=== PATIENT | male | born 1995 | race American Indian/Alaskan Native ===

== ENCOUNTER 2020-02-04 04:29 | Emergency (ER) | payer SELFPAY ==
[2020-02-04 04:40] VITALS: BP 140/52
--- NOTE | 2020-02-04 05:23 | XRay Report ---
EXAMINATION: Left tibia/fibula, 2 views CLINICAL INFORMATION: Left leg pain after fall several days ago COMPARISON: None. FINDINGS: There is no evidence of acute fracture of the tibia or fibula. No focal soft tissue swellin g is identified. Signer Name: Alisia Isidro MD Signed: 02/04/2020 5:19 AM Workstation Name: [id number]
--- NOTE | 2020-02-04 07:50 | Emergency Department Report ---
ED Lower Extremity HPI - General Chief Complaint: Extremity Injury, Lower Stated Complaint: LT LEG PAIN Time Seen by Provider: 02/04/20 07:46 Source: patient Mode of arrival: Ambulatory Limitations: No Limitations - History of Present Illness Initial Comments: 24-year-old -Maur[place] male presents to the emergency room for left lower extremity pain and swelling x1 day. Patient states he jumped off a staircase and hurt his leg. Patient states he is tried Advil Tylenol Epson salt soaks ice and heat. Patient says nothing makes it better and worse is walking. Patient reports a past medical history of asthma currently takes no medications on a daily basis has no known drug allergies. MD Complaint: knee injury Onset/Timin -: days(s) Injury: Knee: Left Type of Injury: blunt Place: home Severity scale (0 -10): 10 Improves With: nothing Worsens With: movement Context: direct blow Associated Symptoms: swelling Treatments Prior to Arrival: cold therapy, NSAIDS, other (Heat) - Related Data Allergies Allergy/AdvReac Type Severity Reaction Status Date / Time No Known Allergies Allergy Unverified 02/04/20 04:38 ED Review of Systems ROS: Stated complaint: LT LEG PAIN Other details as noted in HPI Comment: All other systems reviewed and negative ED Past Medical Hx - Past Medical History Previous Medical History?: Yes Hx Asthma: Yes - Surgical History Past Surgical History?: No - Social History Smoking Status: Never Smoker Substance Use Type: Marijuana ED Physical Exam - General Limitations: No Limitations General appearance: alert, in no apparent distress - Head Head exam: Present: atraumatic, normocephalic - Eye Eye exam: Present: normal appearance - ENT ENT exam: Present: mucous membranes moist - Expanded Lower Extremity Exam Left Knee exam: Present: normal inspection, full ROM, swelling (Mild). Absent: tenderness, erythema, effusion Lower Leg exam: Present: normal inspection, full ROM. Absent: tenderness, swelling Foot/Toe exam: Present: normal inspection Neuro vascular tendon exam: Present: no vascular compromise - Back Exam Back exam: Present: normal inspection - Neurological Exam Neurological exam: Present: alert, oriented X3 - Psychiatric Psychiatric exam: Present: normal affect, normal mood - Skin Skin exam: Present: warm, dry, intact, normal color. Absent: rash ED Course Vital Signs 02/04/20 04:33 Temperature 98.2 F Pulse Rate 67 Respiratory 18 Rate Blood Pressure 140/52 O2 Sat by Pulse 97 Oximetry ED Lower Extremity MDM - Radiology Data Radiology results: report reviewed Patient: LIONEL SEBASTIAN MR#: [id number] : 1995 Acct:[id number] Age/Sex: 24 / M ADM Date: 02/04/20 Loc: ED Attending Dr: Ordering Physician: MAAME CRARENO MD Date of Service: 02/04/20 Procedure(s): XR tibia fibula 2V LT Accession Number(s): [id number] cc: ED MD WAI Fluoro Time In Minutes: EXAMINATION: Left tibia/fibula, 2 views CLINICAL INFORMATION: Left leg pain after fall several days ago COMPARISON: None. FINDINGS: There is no evidence of acute fracture of the tibia or fibula. No focal soft tissue swelling is identified. Signer Name: Alisia Isidro MD Signed: 02/04/2020 5:19 AM Workstation Name: [id number] Transcribed By: EB Dictated By: Alisia Isidro MD Electronically Authenticated By: Alisia Isidro MD Signed Date/Time: 02/04/20518 DD/ 7 TD/TT: - Medical Decision Making 24-year-old -Maur[place] male presents to the emergency room for left lower extremity pain and swelling x1 day. Patient states he jumped off a staircase and hurt his leg. Patient states he is tried Advil Tylenol Epson salt soaks ice and heat. Patient says nothing makes it better and worse is walking. Patient reports a past medical history of asthma currently takes no medications on a daily basis has no known drug allergies. X-ray is negative for any acute findings or infusion. Recommend Tylenol or ibuprofen elevate ice and follow-up with orthopedic provider as I discussed with patient he may need to have an MRI. Patient verbalized understanding. Critical care attestation.: If time is entered above; I have spent that time in minutes in the direct care of this critically ill patient, excluding procedure time. ED Disposition Clinical Impression: Lower leg injury Disposition: DC-01 TO HOME OR SELFCARE Is pt being admited?: No Does the pt Need Aspirin: No Condition: Stable Instructions: Knee Pain (ED) Additional Instructions: X-ray is negative for any acute fractures. I recommend Tylenol or ibuprofen for pain management. Follow-up with a primary care provider or an orthopedic provider if you have any further concerns. Referrals: PRIMARY CAREMD [Primary Care Provider] - 3-5 Days [facility] [Provider Group] - 3-5 Days PARISA RANDALL MD [Staff Physician] - 3-5 Days Forms: Work/School Release Form(ED)
== END 2020-02-04 08:16 | disposition home or self-care (01) ==
LOC: ED 04:29
DX: S89.92XA Unspecified injury of left lower leg, initial encounter (principal); J45.909 Unspecified asthma, uncomplicated; F12.90 Cannabis use, unspecified, uncomplicated; W17.89XA Other fall from one level to another, initial encounter; Y93.89 Activity, other specified; Y92.009 Unspecified place in unspecified non-institutional (private) residence as the place of occurrence of the external cause; Y99.8 Other external cause status

== ENCOUNTER 2021-08-18 11:16 | Emergency (ER) | payer SELFPAY ==
[2021-08-18] MEDS ORDERED: LACTATED RINGERS 1,000 ML IV ONE (11:42)
[2021-08-18] MEDS ORDERED: ALBUTEROL 2.5 MG/3 ML NEBU IH ONE (11:42)
[2021-08-18] MEDS ORDERED: MIDAZOLAM 2 MG/2 ML INJ IV ONE (11:42)
[2021-08-18] MEDS ORDERED: METOCLOPRAMIDE 10 MG/2 ML INJ IV ONE (11:42)
--- NOTE | 2021-08-18 11:44 | Emergency Department Report ---
ED General Adult HPI - General Chief complaint: Chest Pain Stated complaint: CP Time Seen by Provider: 08/18/21 11:41 Source: patient, RN notes reviewed Mode of arrival: Ambulatory Limitations: No Limitations - History of Present Illness Initial comments: Patient is a 25-year-old gentleman, who presents to the ER with a complaint of sudden anterior chest pain. The pain started this morning. It does not radiate to the back, arms or neck. The patient denies vomiting and diaphoresis. The patient is very anxious. The patient consumed recreational hookah yesterday. However, his symptoms started this morning. He believes he has a history of asthma or reactive airway disease. Denies contributory family history. Symptoms in the emergency room are much improved with administration of Versed and albuterol -: Sudden Location: chest Severity scale (0 -10): 8 Consistency: constant Improves with: none Worsens with: none - Related Data Previous Rx's Medication Instructions Recorded Last Taken Type Acetaminophen [Non-Aspirin Extra 500 mg PO Q6HR PRN #30 tablet 08/18/21 Unknown Rx Strength] Albuterol Sulfate [Proair 90 mcg IH Q4HR PRN #2 aer.pow.ba 08/18/21 Unknown Rx Respiclick] Famotidine [Pepcid] 20 mg PO BID #10 tablet 08/18/21 Unknown Rx Ondansetron [Zofran Odt] 4 mg PO Q8HR PRN #20 tab.rapdis 08/18/21 Unknown Rx Allergies Allergy/AdvReac Type Severity Reaction Status Date / Time No Known Allergies Allergy Unverified 02/04/20 04:38 ED Review of Systems ROS: Stated complaint: CP Other details as noted in HPI Constitutional: denies: fever ENT: congestion Respiratory: shortness of breath Cardiovascular: chest pain Gastrointestinal: denies: abdominal pain Psychiatric: anxiety ED Past Medical Hx - Past Medical History Hx Asthma: Yes - Social History Smoking Status: Never Smoker Substance Use Type: Marijuana - Medications Home Medications: Home Medications Medication Instructions Recorded Confirmed Last Taken Type Acetaminophen [Non-Aspirin Extra 500 mg PO Q6HR PRN #30 tablet 08/18/21 Unknown Rx Strength] Albuterol Sulfate [Proair 90 mcg IH Q4HR PRN #2 aer.pow.ba 08/18/21 Unknown Rx Respiclick] Famotidine [Pepcid] 20 mg PO BID #10 tablet 08/18/21 Unknown Rx Ondansetron [Zofran Odt] 4 mg PO Q8HR PRN #20 tab.rapdis 08/18/21 Unknown Rx ED Physical Exam - General Limitations: No Limitations General appearance: alert, anxious, in distress - Head Head exam: Present: atraumatic, normocephalic - Eye Eye exam: Present: normal appearance, EOMI. Absent: nystagmus - ENT ENT exam: Present: normal exam, normal orophraynx, mucous membranes moist, normal external ear exam - Neck Neck exam: Present: normal inspection, full ROM. Absent: tenderness - Respiratory Respiratory exam: Present: respiratory distress, rhonchi, accessory muscle use - Cardiovascular Cardiovascular Exam: Present: regular rate, normal rhythm, normal heart sounds. Absent: bradycardia, tachycardia, irregular rhythm, systolic murmur, diastolic murmur, rubs, gallop - GI/Abdominal GI/Abdominal exam: Present: soft. Absent: distended, tenderness, guarding, rebound, rigid, pulsatile mass - Rectal Rectal exam: Present: deferred - Extremities Exam Extremities exam: Present: normal inspection, full ROM, other (2+ pulses noted in the bilateral upper and lower extremities. There is no palpable cord. negative Homans sign. Muscular compartments are soft. The pelvis is stable.). Absent: pedal edema, calf tenderness - Back Exam Back exam: Present: normal inspection, full ROM. Absent: tenderness, CVA tenderness (R), CVA tenderness (L), paraspinal tenderness, vertebral tenderness - Neurological Exam Neurological exam: Present: alert, oriented X3, other (No facial droop. Tongue midline. Extraocular movements intact bilaterally. Facial sensation intact to light touch in V1, V2, V3 distribution bilaterally. 5 and a 5 strength in 4 extremities. Sensation intact to light touch in 4 extremities.). Absent: motor sensory deficit - Psychiatric Psychiatric exam: Present: anxious - Skin Skin exam: Present: warm, dry, intact, normal color. Absent: rash ED Course Vital Signs 08/18/21 08/18/21 08/18/21 11:34 11:35 11:45 Temperature 98.1 F Pulse Rate 77 81 64 Pulse Rate [ Anterior Bilateral] Respiratory 21 18 12 Rate Respiratory Rate [Anterior Bilateral] Blood Pressure 125/80 Blood Pressure 124/80 [Right] O2 Sat by Pulse 99 100 Oximetry O2 Sat by Pulse Oximetry [ Digit-Finger] 08/18/21 08/18/21 08/18/21 11:56 12:01 12:15 Temperature Pulse Rate 82 100 H Pulse Rate [ 79 Anterior Bilateral] Respiratory 20 17 19 Rate Respiratory 18 Rate [Anterior Bilateral] Blood Pressure 123/79 115/68 Blood Pressure [Right] O2 Sat by Pulse 100 95 97 Oximetry O2 Sat by Pulse Oximetry [ Digit-Finger] 08/18/21 08/18/21 08/18/21 12:31 12:45 13:01 Temperature Pulse Rate 83 76 77 Pulse Rate [ Anterior Bilateral] Respiratory 16 15 15 Rate Respiratory Rate [Anterior Bilateral] Blood Pressure 112/73 128/69 130/67 Blood Pressure [Right] O2 Sat by Pulse 97 100 99 Oximetry O2 Sat by Pulse Oximetry [ Digit-Finger] 08/18/21 08/18/21 08/18/21 13:15 13:24 14:27 Temperature Pulse Rate 81 81 Pulse Rate [ Anterior Bilateral] Respiratory 14 14 Rate Respiratory Rate [Anterior Bilateral] Blood Pressure 121/61 Blood Pressure 121/61 [Right] O2 Sat by Pulse 100 100 Oximetry O2 Sat by Pulse 99 Oximetry [ Digit-Finger] - Reevaluation(s) Reevaluation #1: 08/18/21 12:30 Differential diagnosis, include but not limited to: Pneumonitis, costochondritis, GERD, gastritis, hiatal hernia, acute coronary syndrome, pulmonary embolism, acute aortic syndrome, esophageal rupture Assessment and plan: 25-year-old gentleman who consumed hookah last night, but presents with central sudden chest pain hours after consumption. He is anxious and in marked distress. He is improved with albuterol and midazolam. Presuming negative troponin x2, patient at low risk for major adverse cardiac event as per heart score. Given patient's initial presentation upon arrival, including distress do not feel that patient can be risk stratified for pulmonary embolism by D-dimer alone, and will require advanced imaging to evaluate for alternative pathology, such as esophageal rupture, aortic insufficiency, or nonvisualized pneumothorax. Patient is agreeable to CT scan of the chest. We will reassess after his laboratory studies and CT scan have resulted. 08/18/21 14:27 Patient much improved. Laboratory studies essentially unremarkable, CO2 of 19 likely secondary to hyperventilation. Repeat EKG, troponin, and CT angiogram chest pending at this time 08/18/21 15:47 Patient is reevaluated multiple times. EKG is unchanged x2. Troponin is negative x2. CT angiogram chest negative for acute findings. Patient endorses complete resolution of symptoms and reports that he feels much better. He is counseled to follow-up as an outpatient. Return precautions reviewed. All questions answered - Pulse Oximetry Interpretation Digit-Finger Initial Pulse Oximetry Readin O2 Sat by Pulse Oximetry: 99 Actions Taken: none ED Medical Decision Making - Lab Data Result diagrams: 08/18/21 12:22 08/18/21 12:22 Vital Signs 08/18/21 08/18/21 08/18/21 11:34 11:35 11:56 Temperature 98.1 F Pulse Rate 77 81 Pulse Rate [ Anterior Bilateral] Respiratory 21 18 20 Rate Respiratory Rate [Anterior Bilateral] Blood Pressure 124/80 [Right] O2 Sat by Pulse 99 100 Oximetry 08/18/21 12:01 Temperature Pulse Rate Pulse Rate [ 79 Anterior Bilateral] Respiratory Rate Respiratory 18 Rate [Anterior Bilateral] Blood Pressure [Right] O2 Sat by Pulse Oximetry (1) Lab Results 08/18/21 08/18/21 08/18/21 Range/Units 12: 12:22 12:22 WBC 8.8 (4.5-11.0) K/mm3 RBC 4.90 (3.65-5.03) M/mm3 Hgb 14.2 (11.8-15.2) gm/dl Hct 41.4 (35.5-45.6) % MCV 84 (84-94) fl MCH 29 (28-32) pg MCHC 34 (32-34) % RDW 13.4 (13.2-15.2) % Plt Count 252 (140-440) K/mm3 Lymph % (Auto) 9.3 L (13.4-35.0) % [place] % (Auto) 1.9 (0.0-7.3) % Eos % (Auto) 1.7 (0.0-4.3) % Baso % (Auto) 1.5 (0.0-1.8) % Lymph # (Auto) 0.8 L (1.2-5.4) K/mm3 [place] # (Auto) 0.2 (0.0-0.8) K/mm3 Eos # (Auto) 0.2 (0.0-0.4) K/mm3 Baso # (Auto) 0.1 (0.0-0.1) K/mm3 Seg Neutrophils % 85.6 H (40.0-70.0) % Seg Neutrophils # 7.6 (1.8-7.7) K/mm3 PT 13.0 (12.2-14.9) Sec. INR 0.89 (0.87-1.13) APTT 32.0 (24.2-36.6) Sec. D-Dimer 233.57 (0-234) ng/mlDDU Sodium 140 (137-145) mmol/L Potassium 4.2 (3.6-5.0) mmol/L Chloride 104.7 (98-107) mmol/L Carbon Dioxide 19 L (22-30) mmol/L Anion Gap 21 mmol/L BUN 14 (9-20) mg/dL Creatinine 0.8 (0.8-1.3) mg/dL Estimated GFR > 60 ml/min BUN/Creatinine Ratio 18 % Glucose 105 H (75-100) mg/dL Calcium 9.3 (8.4-10.2) mg/dL Total Bilirubin 0.30 (0.1-1.2) mg/dL AST 17 (5-40) units/L ALT 22 (7-56) units/L Alkaline Phosphatase 60 (35-129) units/L Troponin T < 0.010 (0.00-0.029) ng/mL Total Protein 7.4 (6.3-8.2) g/dL Albumin 4.5 (3.9-5) g/dL Albumin/Globulin Ratio 1.6 % Salicylates (2.8-20.0) mg/dL Acetaminophen (10.0-30.0) ug/mL 08/18/21 08/18/21 Range/Units 12:22 12:22 WBC (4.5-11.0) K/mm3 RBC (3.65-5.03) M/mm3 Hgb (11.8-15.2) gm/dl Hct (35.5-45.6) % MCV (84-94) fl MCH (28-32) pg MCHC (32-34) % RDW (13.2-15.2) % Plt Count (140-440) K/mm3 Lymph % (Auto) (13.4-35.0) % [place] % (Auto) (0.0-7.3) % Eos % (Auto) (0.0-4.3) % Baso % (Auto) (0.0-1.8) % Lymph # (Auto) (1.2-5.4) K/mm3 [place] # (Auto) (0.0-0.8) K/mm3 Eos # (Auto) (0.0-0.4) K/mm3 Baso # (Auto) (0.0-0.1) K/mm3 Seg Neutrophils % (40.0-70.0) % Seg Neutrophils # (1.8-7.7) K/mm3 PT (12.2-14.9) Sec. INR (0.87-1.13) APTT (24.2-36.6) Sec. D-Dimer (0-234) ng/mlDDU Sodium (137-145) mmol/L Potassium (3.6-5.0) mmol/L Chloride (98-107) mmol/L Carbon Dioxide (22-30) mmol/L Anion Gap mmol/L BUN (9-20) mg/dL Creatinine (0.8-1.3) mg/dL Estimated GFR ml/min BUN/Creatinine Ratio % Glucose (75-100) mg/dL Calcium (8.4-10.2) mg/dL Total Bilirubin (0.1-1.2) mg/dL AST (5-40) units/L ALT (7-56) units/L Alkaline Phosphatase (35-129) units/L Troponin T (0.00-0.029) ng/mL Total Protein (6.3-8.2) g/dL Albumin (3.9-5) g/dL Albumin/Globulin Ratio % Salicylates < 0.3 L (2.8-20.0) mg/dL Acetaminophen 5.0 L (10.0-30.0) ug/mL - EKG Data -: EKG Interpreted by [place] EKG shows normal: sinus rhythm Rate: normal - EKG Data When compared to previous EKG there are: previous EKG unavailable 08/18/21 12:28 . The EKG is interpreted at 11: 20. Sinus rhythm, rate 81 bpm. Normal axis, QTC 4 3 9 ms, high left ventricular voltage, normal P wave axis, nonspecific T wave abnormalities. Abnormal EKG. Not a STEMI. - Radiology Data Radiology results: pending, report reviewed, image reviewed CHEST 1 VIEW INDICATION / CLINICAL INFORMATION: Chest Pain. COMPARISON: None available. FINDINGS: SUPPORT DEVICES: None. HEART / MEDIASTINUM: No significant abnormality. LUNGS / PLEURA: No significant pulmonary or pleural abnormality. No pneumothorax. ADDITIONAL FINDINGS: No significant additional findings. IMPRESSION: 1. No acute findings. Signer Name: John Hughes MD Signed: 08/18/2021 10:58 AM Workstation Name: [id number] CTA chest with contrast INDICATION : Acute chest pain and shortness of breath. TECHNIQUE: Axial imaging performed through the chest, with contrast bolus timing set to maximize opacification of the pulmonary arteries. 3-plane MIP reformatted images were obtained. All CT scans at this location are performed using CT dose reduction for ALARA by means of automated exposure control. 85 mL of intravenous contrast administered. COMPARISON: None FINDINGS: Bolus/PTE: Contrast bolus timing is adequate. No filling defect is present to suggest PTE. Mediastinum: Heart and great vessels appear normal. No pathologic mediastinal adenopathy. Lungs: Lungs are clear. Upper abdomen: Limited imaging of the upper abdomen shows nothing acute. No acute abnormality in the distal esophagus or proximal stomach. Bones: Degenerative changes in the spine with nothing acute. IMPRESSION: Negative for PTE. Clear lungs. No significant GI finding. Signer Name: Marvin Nevarez MD Signed: 08/18/2021 2:01 PM Workstation Name: [id number] Critical care attestation.: If time is entered above; I have spent that time in minutes in the direct care of this critically ill patient, excluding procedure time. ED Disposition Clinical Impression: Acute chest pain, Hookah pipe smoker Disposition: 01 HOME / SELF CARE / HOMELESS Is pt being admited?: No Does the pt Need Aspirin: No Condition: Good Instructions: Chest Pain (ED) Additional Instructions: Do not take metformin medication for the next 2 days, if patient takes this medication. Avoid consumption of alcohol, tobacco, and smoke products. Take the pain medications as needed and directed. 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 Patient may take the prescribed pain medications as needed and directed. Minimize/avoid consumption of Motrin, ibuprofen, Naprosyn, Aleve, heavy and spicy foods, as well as alcohol. Please return to the emergency room right away with new pain, worsened pain, migration of pain, projectile vomiting, change in mental status, confusion, inability tolerate liquid feeds, new, worsened or different symptoms not present on the initial emergency room evaluation Prescriptions: Acetaminophen [Non-Aspirin Extra Strength] 500 mg PO Q6HR PRN #30 tablet PRN Reason: Pain , Severe (7-10) Famotidine [Pepcid] 20 mg PO BID #10 tablet Albuterol Sulfate [Proair Respiclick] 90 mcg IH Q4HR PRN #2 aer.pow.ba PRN Reason: Wheezing Ondansetron [Zofran Odt] 4 mg PO Q8HR PRN #20 tab.rapdis PRN Reason: Nausea Referrals: [facility] [Provider Group] - 3-5 Days [facility] [place] [Provider Group] - 3-5 Days Forms: Work/School Release Form(ED) Heart Score - HEART Score History: Slightly suspicious EKG: Non-specific Age: < 45 Risk factors: 1-2 risk factors Troponin: < normal limit HEART Score: 2 - EKG Read Time Time EKG Completed: 11:23 EKG Read Time: 11:23 - Critical Actions Critical Actions: 0-3 pts:0.9-1.7%risk of adverse cardiac event.Candidate for discharge
--- NOTE | 2021-08-18 12:03 | XRay Report ---
CHEST 1 VIEW INDICATION / CLINICAL INFORMATION: Chest Pain. COMPARISON: None available. FINDINGS: SUPPORT DEVICES: None. HEART / MEDIASTINUM: No significant abnormality. LUNGS / PLEURA: No significant pulmonary or pleural abnormality. No pneumothorax. ADDITIONAL FINDINGS: No significant additional findings. IMPRESSION: 1. No acute findings. Signer Name: John Hughes MD Signed: 08/18/2021 11:58 AM Workstation Name: [email or web address]
[2021-08-18] MEDS ORDERED: PANTOPRAZOLE 40 MG INJ IV ONE (12:34)
[2021-08-18 13:24] VITALS: BP 121/61
[2021-08-18 13:25] LABS: Basophils # (Auto) 0.1 K/mm3 (0.0-0.1); Basophils % (Auto) 1.5 % (0.0-1.8); Eosinophils # (Auto) 0.2 K/mm3 (0.0-0.4); Eosinophils % (Auto) 1.7 % (0.0-4.3); Hematocrit 41.4 % (35.5-45.6); Hemoglobin 14.2 gm/dl (11.8-15.2); Lymphocytes # (Auto) 0.8 K/mm3 (1.2-5.4); Lymphocytes % (Auto) 9.3 % (13.4-35.0); Mean Corpuscular HGB Conc 34 % (32-34); Mean Corpuscular Volume 84 fl (84-94); Monocytes # (Auto) 0.2 K/mm3 (0.0-0.8); Monocytes % (Auto) 1.9 % (0.0-7.3); Platelet Count 252 K/mm3 (140-440); Red Cell Distribution Width 13.4 % (13.2-15.2)
[2021-08-18 13:34] LABS: INR 0.89 (0.87-1.13)
[2021-08-18 14:23] LABS: Alanine Aminotransferase 22 units/L (7-56); Albumin 4.5 g/dL (3.9-5); BUN/Creatinine Ratio 18; Blood Urea Nitrogen 14 mg/dL (9-20); Calcium 9.3 mg/dL (8.4-10.2); Hemolysis Index 21
--- NOTE | 2021-08-18 15:05 | Cat Scan Report ---
. CTA chest with contrast INDICATION : Acute chest pain and shortness of breath. TECHNIQUE: Axial imaging performed through the chest, with contrast bolus timing set to maximize opa cification of the pulmonary arteries. 3-plane MIP reformatted images were obtained. All CT scans at this location are performed using CT dose reduction for ALARA by means of automated exposure control. 85 mL of intravenous contrast administered. COMPARISON: None FINDINGS: Bolus/PTE: Contrast bolus timing is adequate. No filling defect is present to suggest PTE. Mediastinum: Heart and great vessels appear normal. No pathologic mediastinal adenopathy. Lungs: Lungs are clear. Upper abdomen: Limited imaging of the upper abdomen shows nothing acute. No acute abnormality in th e distal esophagus or proximal stomach. Bones: Degenerative changes in the spine with nothing acute. IMPRESSION: Negative for PTE. Clear lungs. No significant GI finding. Signer Name: Marvin Nevarez MD Signed: 08/18/2021 3:01 PM Workstation Name: [id number]
--- NOTE | 2021-08-19 10:50 | Electrocardiograph Report ---
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
--- NOTE | 2021-08-20 10:43 | Electrocardiograph Report ---
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
== END 2021-08-18 15:50 | disposition home or self-care (01) ==
LOC: ED 11:16
DX: R07.89 Other chest pain (principal); F17.290 Nicotine dependence, other tobacco product, uncomplicated; J45.909 Unspecified asthma, uncomplicated; F12.90 Cannabis use, unspecified, uncomplicated; Z79.899 Other long term (current) drug therapy
CPT/HCPCS: 36415; 71045; 71275; 80053; 84484; 85025; 85379; 85610; 85730; 93005; 94640; 96361; 96374; 96375; 99284; C9113; J2250; J2765; J7120; Q9967; 80320; 94644; G0480